=== PATIENT | female | born 2005 | race Caucasian/White ===

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

== ENCOUNTER 2025-10-29 21:50 | Emergency (ER) | payer OTHER, SELFPAY ==
[2025-10-29] VITALS (9 sets, daily range): BP systolic 93–132; BP diastolic 50–78; PULSE 60–96; RESP 16; TEMP 36.9; O2SAT 98–100; BMI 27.4
--- OUTSIDE RECORDS SUMMARY | 2025-10-29 22:07 | XMS_ITS | Clinical Summary ---
Author Organization [facility] Address [address] [place] [address] Care Team Providers Care Mission Analyst Name Role Phone Saige Pandya DO Primary Care Provider [phone] Social History Tobacco Use Types Packs/Day Years Used Date Smoking Tobacco: Never Assessed Abuse Screen Answer Date Recorded Unsafe at Home or Work/School Not on file Feels Threatened by Someone? Not on file 06/2024 Does Anyone Keep You from Co ntacting Others or Doint Things Outside the Home? Not on file 02/14/2024 Physical Sign of Abuse Present Not on file 0 02/14/2024 Housing Stability Answer Date Recorded Current Living Arrangements Not on file 06/2024 Potentially Unsafe Housing Conditions Not on colby e 02/14/2024 Family and Community Support Answer Pascual e Recorded Help with Day-to-Day Activities Not on file 02/14/2024 Lonely or Isolated Not on file 02/14/2024 Employment Answer Date Recorded Do you want help finding or keeping work or a talat b? Not on file 02/14/2024 Disabilities Answer Date Recorded Concentrating, Remembering, or Making Decisions Difficulty Not on file 02/14/2024 Doing Errands Independently Difficulty Not on fi le 02/14/2024 Education Answer Date Recorded Help with school or training? Not on file Preferred Language Not on file 02/14/2024 Comments Unknown Sex and Gender Information Value Date Recorded Sex Assigned at Not on file Legal Sex Female 10:52 AM EDT Gender Identity Not on file Sexual Orientation Not on file Plan of Treatment Health Maintenance Due Date Last Done Comments HPV VACCINES (1 - 3-dose series) 2020 MENINGOCOCCAL B VACCINE (1 of 2 - Standard) 2021 ANNUAL PHYSICAL 02/14/2024 HEPATITIS C SCREENING 02/14/2024 INFLUENZA VACCINE 06/08/2025 TDAP/TD VACCINES (2 - Td or Tdap) 03/18/2027 03/18/2017 Pneumococcal Vaccine 0-49 Aged Out 2006, 05/19/2006, 03/15/2006, Additional history exists No longer eligible based on patient's age to complete this topic MENINGOCOCCAL VACCINE Aged Out 03/18/2017 No destinee rula eligible based on patient's age to complete this topic Insurance Care Teams Mission Analyst Relationship Specialty Start Date End Date Saige Pandya DO [address] [place] [id number] PCP - General Family Medicine 02/14/24
--- OUTSIDE RECORDS SUMMARY | 2025-10-29 22:07 | XMS_ITS | Clinical Summary ---
Author Organization [facility] Address [address] [place] [address] Care Team Providers Care Sash Clamp Operator Name Role Phone GregSaige solano Primary Care Provider [phone] Allergies No known active allergies Medications albuterol 108 (90 Base) MCG/ACT inhaler 2-6 puffs every 3-4 hours as needed and 2-4 puffs 15 min. prior to exercise 0 Active Albuterol Sulfate (ProAir RespiClick) 108 (90 Base) MCG/ACT aerosol powder 2-4 inhalations every 3-4 hours as needed for shortness of breath or difficulty breathing. May take 2-4 inhalation 20 minutes before sports. 1 Active fluticasone-carmelo meterol (Advair HFA) 115-21 MCG/ACT inhaler INHALE 2 PUFFS AT 12 HOUR INTERVALS (MORNING AND EVENING). 0 Active montelukast (Singulair) 10 MG tablet TAKE 1 TABLET BY MOUTH DAILY IN THE EVENING. 0 Active omeprazole (PriLOSEC) [address] capsule TAKE 1 CAPSULE DAILY 30 MINUTES BEFORE BREAKFAST 0 Active Annalee 0.25-35 MG-MCG tablet Take 1 tablet by mouth 1 (one) time each day. 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 Thrush, oral 04/04/2020 Acid reflux disease 10/02/2019 Asthma 10/02/2019 Exercise-induced bronchospasm 10/02/2019 Resolved Problems Problem Noted Date Diagnosed Date Resolved Date Snoring 04/02/2021 07/29/2025 Family History Medical History Relation Name Comments Allergy (severe) Other 1 Asthma Other 2 Relation Name Status Comments Other 1 Other 2 Social History Tobacco Use Types Packs/Day Years Used Date Smoking Tobacco: Never Smokeless Tobacco: Never Comments Unknown Sex and Gender Information Value Date Recorded Sex Assigned at Not on file Legal Sex Female 7:34 PM EDT Gender Identity Not on file Sexual Orientation Not on file Last Filed Vital Signs Vital Sign Reading Time Taken Comments Blood Pressure 91/40 05/11/2021 10:21 AM EDT Pulse 73 05/11/2021 10:21 AM EDT Temperature 36.6 C (97.8 F) 05/11/2021 10:21 AM EDT Respiratory Rate 18 05/11/2021 10:21 AM EDT Oxygen Saturation 99% 05/11/2021 10:21 AM EDT Inhaled Oxygen Concentration - - Weight 62.6 kg (138 lb 0.1 oz) 05/11/2021 8:34 A M EDT Height 165 cm (5' 4.96 ) 04/02/2021 8:58 AM EDT Body Mass Index - - Plan of Treatment Health Maintenance Due Date Last Done Comments [facility]-Depression Screening 2005 [facility]-/Child/Adol SDOH Screenings 2005 [facility]-Varicella Vaccines (1 of 2 - 13+ 2-dose series) 2018 HPV Vaccines (1 - 3-dose series) 2020 [facility]- SDOH Screenings 2023 [facility]-Adult SDOH Screenings 2023 [facility]-DTaP,Tdap,and Td Vaccine s (1 - Tdap) 2024 [facility]-Hepatitis B Vaccines (1 of 3 - 19+ 3-dose series) 2024 [id number] Vaccine (1 - 20 25-26 season) 2025 [facility]-Influenza Vaccine (#1) 2025 [facility]-Zoster Vaccines (1 of 2) 2055 [facility]-HIB Vaccines Aged Out No longer e ligible based on patient's age to complete this topic [facility]-Hepatitis A Vaccines Aged Out No longer eligible based on patient's age to complete this topic [facility]-IPV Vaccines Aged Out No longer e ligible based on patient's age to complete this topic [facility]-Pneumococcal Vaccine: Pediatrics (0 to 5 Years) and At-Risk Patients (6 to 49 Years) Aged Out No long er eligible based on patient's age to complete this topic [facility]-Rotavirus Vaccines Aged Out No lo nger eligible based on patient's age to complete this topic Insurance [facility] Care Teams Sash Clamp Operator Relationship Specialty Start Date End Date Saige Pandya DO [address] [place] [address] RENÉE Egan [id number] PCP - General 03/21/21
[2025-10-29 22:20] LABS: Microscopic, Urine URINE MICROSCOPIC (MICROSCOPIC)
[2025-10-29 22:21] LABS: Hematocrit 41.1 % (37.0-47.0); Hemoglobin 14.7 g/dL (12.2-16.2); Immature Granulocytes % 0.1 %; Mean Corpuscular HGB Conc 35.8 g/dL (31.8-35.4); Mean Corpuscular Hemoglobin 30.7 pg (27.0-31.2); Mean Corpuscular Volume 85.8 fl (81-99); Nucleated Red Blood Cells % 0 %; Platelet Count 246 K/mm3 (142-424); Red Blood Count 4.79 M/mm3 (4.20-5.40); Red Cell Distribution Width-SD 37.2 fL; White Blood Count 8.0 K/mm3 (4.5-13.0)
[2025-10-29 22:28] LABS: Albumin Level 5.3 g/dl (3.5-5.0); Chloride 104 mmol/L (98-107); Potassium 4.1 mmoL/L (3.5-5.1); Sodium 140 mmol/L (136-145)
[2025-10-29 22:31] LABS: Alanine Aminotransferase 23 U/L (12-78); Albumin/Globulin Ratio 1.7 (1.1-1.8); Alkaline Phosphatase 75 U/L (38-126); Anion Gap 14.1 mEq/L (5-15); Aspartate Amino Transferase 30 U/L (14-36); Bilirubin,Total 0.5 mg/dl (0.2-1.3); Blood Urea Nitrogen 13 mg/dl (7-17); Calcium 10.5 mg/dl (8.4-10.2); Carbon Dioxide 26 mmol/L (22.0-30.0); Creatinine Clearance Estimated 129 mL/min (50-200); Creatinine,Serum 0.80 mg/dl (0.52-1.04); Estimated Glomerular Filt Rate 91 ml/min (>60); GFR (African American) 111 ML/MIN (>60); Globulin 3.1 g/dL (1.3-3.2); Glucose 90 mg/dl (74-100); Lipase 78 U/L (23-300); Total Protein,Serum 8.4 g/dl (6.3-8.2)
[2025-10-29 22:34] LABS: Bilirubin,Urine Negative (Negative); Color,Urine YELLOW (Yellow); Glucose,Urine (UA) Negative (Negative); Ketones,Urine Negative (Negative); Leukocyte Esterase,Urine Negative (Negative); PH,Urine 7.0 (5.0-8.5); Protein,Urine Negative (Negative); Specific Gravity, Urine 1.020 (1.005-1.030); Urobilinogen,Urine 0.2 EU/dl (0.2)
[2025-10-29 22:45] LABS: Bacteria,Urine 2+ /lpf
[2025-10-29 22:46] LABS: Opiate Screen,Urine Negative ng/ml (<300)
[2025-10-29 22:47] LABS: Phencyclidine Screen,Urine Negative ng/ml (<25)
[2025-10-29 22:48] LABS: Amphetamine/Metha Screen,Urine Negative ng/ml (<1000)
[2025-10-29 22:49] LABS: Barbiturates Screen,Urine Negative ng/ml (<200); Benzodiazepines Screen,Urine Negative ng/ml (<200)
[2025-10-29 22:53] LABS: Methadone Screen,Urine Negative ng/ml (<300)
--- NOTE | 2025-10-29 22:56 | CT_ITS ---
PROCEDURE INFORMATION: Exam: CT Abdomen And Pelvis With Contrast Exam date and time: 10/29/2025 11:21 PM Age: 20 years old Clinical indication: Abdominal pain; Additional info: Intermittent llq abdominal pain TECHNIQUE: Imaging protocol: Computed tomography of the abdomen and pelvis with contrast. Radiation optimization: All CT scans at this facility use at least one of these dose optimization techniques: automated exposure control; mA and/or kV adjustment per patient size (includes targeted exams where dose is matched to clinical indication); or iterative reconstruction. Contrast material: ISOVUE; Contrast volume: 75 ml; Contrast route: IV; COMPARISON: CR XR HIP LT 2-3V W/PELVIS 07/22/2020 9:34 AM FINDINGS: Liver: Normal. No mass. Gallbladder and biliary ducts: Normal. No calcified stones. No ductal dilation. Pancreas: Normal. No ductal dilation. Spleen: Normal. No splenomegaly. Adrenal glands: Normal. No mass. Kidneys and ureters: Normal. No hydronephrosis. Stomach and bowel: Unremarkable. No obstruction. No mucosal thickening. Appendix: No evidence of appendicitis. Intraperitoneal space: Unremarkable. No free air. No significant fluid collection. Vasculature: Unremarkable. No abdominal aortic aneurysm. Lymph nodes: Unremarkable. No enlarged lymph nodes. Urinary bladder: Unremarkable as visualized. Reproductive: Unremarkable as visualized. Bones/joints: Unremarkable. No acute fracture. Soft tissues: Unremarkable. IMPRESSION: No acute findings.
--- NOTE | 2025-10-29 22:58 | [facility].EDGENADL ---
Discharge Plan Disposition Patient Disposition: Home, Self-Care Condition: Good Prescriptions Prescriptions: New sucralfate 100 mg/mL suspension 1 g PO Q6H Qty: 414 0RF No Action norgestimate-ethinyl estradiol [Annalee] 0.25-35 mg-mcg tablet 1 tab PO DAILY Patient Comments: TAKE 1 TABLET BY MOUTH DAILY prednisone 10 mg tablet 10 mg PO BID epinephrine 0.3 mg/0.3 mL auto-injector See Rx Instructions .ROUTE .COMPLEX Patient Comments: INJECT CONTENTS OF 1 PEN IN THE MUSCLE ONE TIME DIRECTED Rx Instructions: inject IM when needed levocetirizine 5 mg tablet 5 mg PO DAILY Patient Comments: TAKE 1 TABLET BY MOUTH EVERY EVENING bacitracin [Bacitraycin Plus] 500 unit/gram ointment 1 applic topical BID Qty: 14 0RF amoxicillin-pot clavulanate 875-125 mg tablet 1 tab PO BID Qty: 14 0RF bacitracin [Bacitraycin Plus] 500 unit/gram ointment 1 applic topical BID Qty: 14 0RF Referrals Follow up/Referrals: Saige Pandya [Primary Care Provider, Medical] - See instructions Kei Becerril II, MD [Staff Physician, Gastroenterology] - See instructions Activity Restrictions/Add. Instructions Additional Instructions/Restrictions: Take the Carafate in the morning and before meals to help and see if this helps with your symptoms. Keep a journal at home of any foods or substances that makes your abdominal pain get worse. I sent you with a referral to our GI doctor if he would like to follow-up for recurrent symptoms. Return to the emergency department if you are unable to tolerate oral intake, if you have blood in your stool or if you have any other acute concerns. Clinical Impressions Clinical Impression: Abdominal pain Instructions Patient Instructions: DI for Acute Abdominal Pain Print Language Print Language: Tamaz[place] Discharge ED Provider: Lynn Mishra Adult HPI General Chief complaint: Abdominal Pain Stated complaint: Abdominal pain with nausea Time Seen by Provider: 10/29/25 22:48 Mode of Arrival: Family Vehicle Source of Information: Patient Description of Symptoms (Recalled from ER Triage Doc. by RN): Abd pain Pt presents to the ED with c/o worsening chronic abd pain. Pt reports that she has had L sided abd pain for months and states that it has been getting worse the last few weeks . Pt denies other symptoms, but reports last M X 3-4 days ago. History of Present Illness HPI narrative: Patient is a 20-year-old female with no significant past medical history who presents to the emergency department with left-sided abdominal pain for months. Patient states that her pain is intermittent for the last 3 to 4 months, but has been worse over the last 3 to 4 days. Patient states that pain is intermittent left-sided but sometimes will rotate and migrate to the right side. Patient reports some mild nausea no vomiting patient does report some intermittent diarrhea. Patient denies any fevers. Patient denies any upper respiratory symptoms. Patient denies any urinary symptoms. Patient denies any prior abdominal surgeries. Related Data Home Medications ?Medication ?Instructions ?Recorded ?Confirmed norgestimate 0.25 mg-ethinyl 1 tab PO DAILY b/c 11/25/23 01/01/24 estradiol 0.035 mg tablet (Annalee) epinephrine 0.3 mg/0.3 mL See Rx Instructions .Route 01/01/24 01/01/24 injection, auto-injector .COMPLEX allergic reaction levocetirizine 5 mg tablet 5 mg PO DAILY 01/01/24 01/01/24 prednisone 10 mg tablet 10 mg PO BID 01/01/24 01/01/24 Previous Rx's ?Medication ?Instructions ?Recorded amoxicillin 875 mg-potassium 1 tab PO BID #14 tabs 05/18/24 clavulanate 125 mg tablet bacitracin 500 unit/gram topical 1 applic topical BID #14 grams 05/18/24 ointment (Bacitraycin Plus) bacitracin 500 unit/gram topical 1 applic topical BID #14 grams 05/18/24 ointment (Bacitraycin Plus) sucralfate 100 mg/mL oral 1 g (10 mL) PO Q6H #414 mL 10/30/25 suspension Allergies Allergy/AdvReac Type Severity Reaction Status Date / Time acetaminophen (From Tylenol) Allergy Anaphylaxis Verified 10/29/25 22:09 ibuprofen Allergy Anaphylaxis Verified 10/29/25 22:09 [facility] Disclaimer: The information contained in this section may have been updated after the patient was seen, as this information can be updated by other users. Medical History (Updated 10/30/25 @ 00:16 by Lynn Mishra DO) Asthma Migraine Social History Smoking Status: Former smoker alcohol intake: never substance use type: denies use current occupational status: student Travel in the last 8 weeks?: None household members: family housing: house Have you lived/traveled outside [place] in past 30 days?: No Contact w/someone who lives/traveled outside [place] past 30 days?: No Exposure to someone with infectious disease in past 14 days?: No Do you have a fever (greater than 100.4 F or 38 C)?: No Have you tested positive for COVID-19?: No Exposed to someone with COVID-19 in past 14 days?: No Do you have a sore throat?: No Do you have a cough?: No Do you have any weakness?: No Do you have any diarrhea?: No Are you experiencing any unusual bleeding?: No Do you have any muscle aches/pain?: No Do you have any abdominal pain?: No Are you experiencing loss of taste or smell?: No Other Medical History Have you received the Flu Vaccine for this season: No Have you received the Pneumonia Vaccine: No ROS Obtained: Yes All systems reviewed & no additional complaints except as documented and Yes Systems reviewed as appropriate & no additional complaints except as documented Physical Exam General General appearance: alert and in no apparent distress Head Head exam: atraumatic, normocephalic and normal inspection Eye Eye exam: Present normal appearance, PERRL and EOMI; Absent scleral icterus ENT ENT exam: Present normal exam and normal external ear exam Neck Neck exam: Present normal inspection and full ROM Chest Chest inspection: Present normal inspection and symmetric chest wall rise Respiratory Respiratory exam: Present normal lung sounds bilaterally; Absent respiratory distress or wheezes Cardiovascular Cardiovascular exam: Present regular rate, normal rhythm and normal heart sounds Abdominal Exam Abdominal exam: Present soft, distention and tenderness (mild left sided tenderness, no RLQ tenderness, no RUQ tenderness); Absent guarding or rebound Extremities Exam Extremities exam: Present normal inspection and full ROM Back Exam Back exam: Present normal inspection and full ROM Neurological Exam Neurological exam: Present alert and oriented X3 Psychiatric Psychiatric exam: Present normal affect and normal mood Skin Skin exam: Present warm and dry Medical Decision Making Medical Records Medical records reviewed: Yes I reviewed the patient's medical records. Screening: Per USPSTF and CDC recommendations, given the prevalence of disease in our region, it is our hospital?s policy to screen for HIV and viral Hepatitis for all patients aged 18 and over and those with ongoing risk factors. Flavio Inquiry Pt receiving controlled substance: No Vital Signs: 10/29/25 22:02 10/29/25 22:15 10/29/25 22:30 Temperature 98.4 F Temperature Source Oral Pulse Rate 70 60 Pulse Rate [Left] 84 Respiratory Rate 16 Blood Pressure Blood Pressure [Right Arm] 132/78 Blood Pressure Mean Blood Pressure Mean [Right Arm] 96 Blood Pressure Source [Right Arm] Automatic Cuff Blood Pressure Position [Right Arm] Sitting 02 Sat by Pulse Oximetry 100 100 99 Oxygen Delivery Method Room Air Room Air Room Air 10/29/25 22:30 10/29/25 23:00 10/29/25 23:00 Temperature Temperature Source Pulse Rate 62 Pulse Rate [Left] Respiratory Rate Blood Pressure 102/66 L 93/50 L Blood Pressure [Right Arm] Blood Pressure Mean 74 64 Blood Pressure Mean [Right Arm] Blood Pressure Source [Right Arm] Blood Pressure Position [Right Arm] 02 Sat by Pulse Oximetry 98 Oxygen Delivery Method Room Air 10/29/25 23:15 10/29/25 23:25 10/29/25 23:30 Temperature Temperature Source Pulse Rate 60 96 H Pulse Rate [Left] Respiratory Rate Blood Pressure 115/71 Blood Pressure [Right Arm] Blood Pressure Mean 84 Blood Pressure Mean [Right Arm] Blood Pressure Source [Right Arm] Blood Pressure Position [Right Arm] 02 Sat by Pulse Oximetry 100 100 Oxygen Delivery Method Room Air Room Air 10/29/25 23:31 Temperature Temperature Source Pulse Rate 80 Pulse Rate [Left] Respiratory Rate Blood Pressure Blood Pressure [Right Arm] Blood Pressure Mean Blood Pressure Mean [Right Arm] Blood Pressure Source [Right Arm] Blood Pressure Position [Right Arm] 02 Sat by Pulse Oximetry 98 Oxygen Delivery Method Room Air Lab Data Lab results reviewed: Yes I reviewed the patient's lab results. Lab Results 10/29/25 22:00: Urine Color Yellow, Urine Appearance Clear, Urine pH 7.0, Ur Specific [place] 1.020, Urine Protein Negative, Urine Glucose (UA) Negative, Urine Ketones Negative, Urine Blood Trace-i, Urine Nitrate Negative, Urine Bilirubin Negative, Urine Urobilinogen 0.2, Ur Leukocyte Esterase Negative, Urine RBC None, Urine WBC 3-5, Ur Squamous Epith Cells 3-5, Urine Bacteria 2+, Urine Opiates Screen Negative, Urine Methadone Screen Negative, Ur Barbituates Screen Negative, Ur Phencyclidine Scrn Negative, Ur Amphetamines Screen Negative, U Benzodiazepines Scrn Negative, Urine Cocaine Screen Negative, U Marijuana (THC) Screen Negative 10/29/25 22:05: WBC 8.0, RBC 4.79, Hgb 14.7, Hct 41.1, MCV 85.8, MCH 30.7, MCHC 35.8 H, RDW 11.9, Plt Count 246, MPV 8.8, Neut % (Auto) 54.5, Lymph % (Auto) 36.9, [place] % (Auto) 5.3, Eos % (Auto) 2.8, Baso % (Auto) 0.4, Neut # (Auto) 4.4, Lymph # (Auto) 3.0, [place] # (Auto) 0.4, Eos # (Auto) 0.2, Baso # (Auto) 0.0, Sodium 140, Potassium 4.1, Chloride 104, Carbon Dioxide 26, Anion Gap 14.1, BUN 13, Creatinine 0.80, Estimated Creat Clear 129, Estimated GFR 91, Est GFR ( Amer) 111, Glucose 90, Lactate 1.0, Calcium 10.5 H, Total Bilirubin 0.5, AST 30, ALT 23, Alkaline Phosphatase 75, Total Protein 8.4 H, Albumin 5.3 H, Globulin 3.1, Albumin/Globulin Ratio 1.7, Lipase 78, Serum HCG, Qual Negative, HCV Ab NEEMA w/Rflx PCR Qn Negative, HIV Ag/Ab Combo Qual Negative 10/29/25 22:05 10/29/25 22:05 Orders (Tests/Meds): ED MEDICATIONS Generic Name Dose Route Start Last Admin Trade Name Freq PRN Reason Stop Dose Admin Sodium Chloride 10 ml 10/29/25 23:26 10/29/25 23:27 Sodium Chloride 0.9% 10ml Syr (Rad Only) IV 11/28/25 23:25 10 ml NEEDED PRN Administration Maintain IV Site Discontinued Medications Generic Name Dose Route Start Last Admin Trade Name Freq PRN Reason Stop Dose Admin Dicyclomine HCl 20 mg 10/29/25 22:57 10/29/25 23:21 Dicyclomine 10mg Capsule PO 10/29/25 22:58 20 mg ONCE ONE Administration Iopamidol 75 ml 10/29/25 23:26 10/29/25 23:27 Iopamidol-370 (76%);100ml Bottle IV 10/29/25 23:27 75 ml ONCE ONE Administration Ondansetron HCl 4 mg 10/29/25 22:57 10/29/25 23:21 Ondansetron 4mg/2ml Vial IV 10/29/25 22:58 4 mg ONCE ONE Administration ORDERS Category Date Time Status CT abdomen pelvis w con Stat Cat Scan 10/29/25 22:56 Completed Complete Blood Count Auto Diff Stat Lab 10/29/25 22:05 Completed Comprehensive Metabolic Panel Stat Lab 10/29/25 22:05 Completed Drug Screen,Urine Stat Lab 10/29/25 22:00 Completed HCG Qualitative, Serum Stat Lab 10/29/25 22:05 Completed HIV Combo Stat Lab 10/29/25 22:05 Completed Hepatitis C Ab Qual. W/ RFX Stat Lab 10/29/25 22:05 Completed Lactic Acid Stat Lab 10/29/25 22:05 Completed Lipase Stat Lab 10/29/25 22:05 Completed Urinalysis and Microscopic Stat Lab 10/29/25 22:00 Completed Urine Culture Stat Micro 10/29/25 22:00 Received Medical Decision Narrative: Patient is a 20-year-old female with no significant past medical history who presented to the emergency department with abdominal pain. Patient states has been present for 3 to 4 months worsened over the last couple days. On arrival, patient was hemodynamically stable with unremarkable vital signs. Differential includes but not limited to: Diverticulitis, colitis, gastroenteritis, constipation, IBD, Crohn's disease, amongst others. Patient states that she is unable to take Tylenol or Motrin. Patient was given Bentyl and Zofran for pain control. Patient's labs were reviewed and interpreted by myself: CBC showed no leukocytosis, hemoglobin was stable. CMP was unremarkable. UA showed no evidence of infection. Urine drug screen was negative. CT scan of the abdomen showed no acute pathology. At this time, given patient's otherwise unremarkable workup I felt the patient was stable and appropriate for discharge with outpatient follow-up with Dr. Becerril. Patient was given a referral and patient was discharged home in stable condition. Patient was given Carafate to take for symptom control as well. Patient states that she is visiting and was advised to follow-up with her home GI or here when she is coming back in December. Was given return precautions. Critical Care Critical Care Time Critical Care Time: No
[2025-10-29 23:10] LABS: HCG Qualitative, Serum Negative (Negative)
[2025-10-29] MEDS: ONDANSETRON 4MG/2ML VIAL 4 MG IV (23:21)
[2025-10-29] MEDS: IOPAMIDOL-370 (76%);100ML BOTTLE 75 ML IV (23:27)
[2025-10-29] MEDS: SODIUM CHLORIDE 0.9% 10ML SYR (RAD ONLY) 10 ML IV (23:27)
[2025-10-29 23:55] LABS: Hepatitis C Ab Qual. W/ RFX NEGATIVE (Negative)
[2025-10-30 00:23] VITALS: BP 108/66; PULSE 63; O2SAT 100
[2025-10-30 00:26] VITALS: BP 108/66; PULSE 63; RESP 16; TEMP 36.9; O2SAT 100
== END 2025-10-30 00:27 | disposition home or self-care (01) ==
PROVIDERS: Physician Assistant; Emergency Provider Student in an Organized Health Care Education/Training Program; PCP Family Medicine
DX: R10.32 Left lower quadrant pain (principal); R11.0 Nausea
CPT/HCPCS: 74177; 80053; 80307; 81001; 83605; 83690; 84703; 85025; 86803; 87086; 87389; 96374; 99285; J2405; Q9967